=== PATIENT | female | born 1995 | race Caucasian/White ===

== ENCOUNTER 2021-06-02 02:36 | Inpatient (IN) | payer BC, OTHER ==
[2021-06-02 06:09] VITALS: BMI 25.7
[2021-06-02 06:55] LABS: BASO % 0.4 % (0-2.0); EOS % 0.5 % (0-4.5); HEMATOCRIT 33.3 % (32.4-45.2); HEMOGLOBIN 11.3 GM/dL (10.7-15.3); LYMPH % 25.2 % (8-40); MCH 27.5 pg (25.7-33.7); MEAN CELL VOLUME 80.9 fl (80-96); MEAN PLT VOLUME 7.5 fl (7.5-11.1); MONO % 5.7 % (3.8-10.2); NEUT % 68.2 % (42.8-82.8); PLATELET COUNT 327 10^3/uL (134-434); RBC 4.11 M/mm3 (3.60-5.2); RDW 15.1 % (11.6-15.6); WHITE BLOOD COUNT 8.8 K/mm3 (4.0-10.0)
[2021-06-02 07:00] LABS: BLOOD UREA NITROGEN 16.8 mg/dL (7-18); CALCIUM 8.5 mg/dL (8.5-10.1)
[2021-06-02 07:04] LABS: CREATININE 0.6 mg/dL (0.55-1.3)
[2021-06-02 07:10] LABS: INR 1.01 (0.83-1.09); PROTHROMBIN TIME (PATIENT) 12.2 SEC (9.7-13.0)
[2021-06-02 07:13] LABS: ACTIVATED PTT 26.8 SECONDS (25.2-36.5)
[2021-06-02] MEDS ORDERED: OXYTOCIN 20 UNITS in 0.9% NS 20 UNIT/1,000 ML INFUS.BAG IV ONE ×2 (17:43→19:12)
[2021-06-02] MEDS ORDERED: LIDOCAINE HCL 1% PRESERVATIVE FREE - 30ML VIAL ONE (17:43)
[2021-06-02] MEDS ORDERED: ELECTROLYTE-148 SOLN 1,000 ML IV SCH (18:45)
[2021-06-02] MEDS ORDERED: OXYTOCIN 30 UNITS in 0.9% NS 30 UNIT/500 ML INFUS.BAG IVPB ONE (19:12)
[2021-06-02] MEDS ORDERED: OXYTOCIN 30 UNITS in 0.9% NS 30 UNIT/500 ML INFUS.BAG IVPB SCH (19:15)
[2021-06-02] MEDS ORDERED: IBUPROFEN 600 MG TABLET (FP) PO ONE (21:18)
[2021-06-02] MEDS ORDERED: BENZOCAINE 20% 57 GM BOTTLE TP PRN (21:24)
[2021-06-02] MEDS ORDERED: METHYLERGONOVINE MALEATE 0.2 MG/1 ML AMP IM PRN (21:24)
[2021-06-02] MEDS ORDERED: WITCH HAZEL 50% (TUCKS) 40 PAD/JAR PAD TP PRN (21:24)
[2021-06-02] MEDS ORDERED: BENZOCAINE 28 GM HEMORRHOIDAL OINTMENT TP PRN (21:24)
[2021-06-02] MEDS ORDERED: IBUPROFEN 600 MG TABLET (FP) PO PRN (21:24)
[2021-06-02] MEDS ORDERED: BISACODYL 10 MG SUPP.RECT RC PRN (21:24)
[2021-06-02] MEDS ORDERED: OXYTOCIN 20 UNITS in 0.9% NS 20 UNIT/1,000 ML INFUS.BAG IV SCH (21:30)
[2021-06-03] MEDS: ACETAMINOPHEN 325 MG TABLET (FP) PO PRN ×3 (09:32→20:35)
[2021-06-03 11:27] LABS: BASO % 0.3 % (0-2.0); EOS % 0.2 % (0-4.5); HEMATOCRIT 29.3 % (32.4-45.2); HEMOGLOBIN 9.9 GM/dL (10.7-15.3); LYMPH % 14.4 % (8-40); MCH 27.7 pg (25.7-33.7); MCHC 33.7 g/dl (32.0-36.0); MEAN CELL VOLUME 82.1 fl (80-96); MEAN PLT VOLUME 7.8 fl (7.5-11.1); NEUT % 81.1 % (42.8-82.8); PLATELET COUNT 270 10^3/uL (134-434); RBC 3.57 M/mm3 (3.60-5.2); WHITE BLOOD COUNT 13.9 K/mm3 (4.0-10.0)
[2021-06-03] MEDS ORDERED: SENNOSIDES/DOCUSATE COMBO (SENNA PLUS) TABLET (UD) PO PRN (22:00)
[2021-06-04 09:39] LABS: POC NITRAZINE NEG
[2021-06-04 12:40] VITALS: BP 110/78; PULSE 71; TEMP 98.1
== END 2021-06-04 12:40 | disposition home or self-care (01) | DRG 807 ==
LOC: JDEL 02:36 → JLDR 04:45 → J3W 22:54
PROVIDERS: ADMIT Specialist; ATTEND Specialist
PROC: 10E0XZZ Delivery of Products of Conception, External Approach (ICD-10-PCS; principal; 2021-06-02)
DX: O70.0 First degree perineal laceration during delivery (principal); Z37.0 Single live birth; Z3A.39 39 weeks gestation of pregnancy
CPT/HCPCS: 36415; 59409; 80048; 83986-QW; 85025; 85610; 85730; 86780; 86850; 86900; 86901; C9803; U0003; U0005

== ENCOUNTER 2022-06-09 16:40 | Emergency (ER) | payer OTHER ==
[2022-06-09 17:19] VITALS: BP 102/70; PULSE 96; RESP 20; TEMP 98.5; BMI 30.9
[2022-06-09] MEDS: ALBUTEROL SO4 2.5/IPRATROPIUM 0.5 INH SOL 3 ML VIAL.NEB. NEB SCH ×3 (17:45→18:36)
[2022-06-09] MEDS ORDERED: ALBUTEROL SO4 2.5/IPRATROPIUM 0.5 INH SOL 3 ML VIAL.NEB. NEB ONE (18:22)
== END 2022-06-09 19:54 | disposition home or self-care (01) ==
LOC: JER 16:40
PROC: 3E0F7GC Introduction of Other Therapeutic Substance into Respiratory Tract, Via Natural or Artificial Opening (ICD-10-PCS; principal; 2022-06-09)
DX: R51.9 Headache, unspecified (principal); R05.1 Acute cough; R09.81 Nasal congestion
CPT/HCPCS: 0241U-QW; 99283-25

== ENCOUNTER 2022-07-30 03:00 | Inpatient (IN) | payer OTHER ==
[2022-07-30 18:39] VITALS: BMI 31.8
[2022-07-30 18:59] LABS: BASO % 0.3 % (0-2.0); EOS % 0.1 % (0-4.5); HEMATOCRIT 32.6 % (32.4-45.2); LYMPH % 12.6 % (8-40); MCH 27.5 pg (25.7-33.7); MCHC 33.7 g/dl (32.0-36.0); MEAN CELL VOLUME 81.7 fl (80-96); MEAN PLT VOLUME 7.6 fl (7.5-11.1); MONO % 3.7 % (3.8-10.2); NEUT % 83.3 % (42.8-82.8); PLATELET COUNT 319 10^3/uL (134-434); RBC 3.99 M/mm3 (3.60-5.2); RDW 14.8 % (11.6-15.6); WHITE BLOOD COUNT 10.3 K/mm3 (4.0-10.0)
[2022-07-30 19:07] LABS: INR 1.03 (0.83-1.09); PROTHROMBIN TIME (PATIENT) 11.8 SEC (9.7-13.0)
[2022-07-30 19:09] LABS: ACTIVATED PTT 27.2 SECONDS (25.2-36.5)
[2022-07-30] MEDS ORDERED: BENZOCAINE 28 GM HEMORRHOIDAL OINTMENT TP PRN (19:14)
[2022-07-30] MEDS ORDERED: BISACODYL 10 MG SUPP.RECT RC PRN (19:14)
[2022-07-30] MEDS ORDERED: WITCH HAZEL 50% (TUCKS) 40 PAD/JAR PAD TP PRN (19:14)
[2022-07-30] MEDS ORDERED: BENZOCAINE 20% 57 GM BOTTLE TP PRN (19:14)
[2022-07-30] MEDS ORDERED: METHYLERGONOVINE MALEATE 0.2 MG/1 ML AMP IM PRN (19:14)
[2022-07-30] MEDS ORDERED: OXYTOCIN 20 UNITS in 0.9% NS 20 UNIT/1,000 ML INFUS.BAG IV SCH (19:15)
[2022-07-30 19:18] LABS: CALCIUM 8.6 mg/dL (8.5-10.1)
[2022-07-30 19:19] LABS: BLOOD UREA NITROGEN 12.5 mg/dL (7-18)
[2022-07-30 19:21] LABS: CREATININE 0.5 mg/dL (0.55-1.3)
[2022-07-30] MEDS ORDERED: IBUPROFEN 600 MG TABLET (FP) PO ONE (20:50)
[2022-07-30] MEDS: IBUPROFEN 600 MG TABLET (FP) PO PRN (20:52)
[2022-07-31 09:56] LABS: BASO % 0.3 % (0-2.0); EOS % 0.3 % (0-4.5); HEMATOCRIT 31.9 % (32.4-45.2); HEMOGLOBIN 10.6 GM/dL (10.7-15.3); MCH 27.5 pg (25.7-33.7); MCHC 33.2 g/dl (32.0-36.0); MEAN CELL VOLUME 82.7 fl (80-96); MEAN PLT VOLUME 7.6 fl (7.5-11.1); MONO % 4.9 % (3.8-10.2); NEUT % 80.5 % (42.8-82.8); PLATELET COUNT 278 10^3/uL (134-434); RBC 3.86 M/mm3 (3.60-5.2); RDW 14.9 % (11.6-15.6); WHITE BLOOD COUNT 11.2 K/mm3 (4.0-10.0)
[2022-07-31] MEDS: IBUPROFEN 600 MG TABLET (FP) PO PRN (20:28)
[2022-07-31] MEDS ORDERED: SENNOSIDES/DOCUSATE COMBO (SENNA PLUS) TABLET (UD) PO PRN (22:00)
[2022-08-01] MEDS: IBUPROFEN 600 MG TABLET (FP) PO PRN (09:36)
[2022-08-01 11:52] VITALS: BP 102/68; PULSE 70; RESP 18; TEMP 98.1
== END 2022-08-01 12:45 | disposition home or self-care (01) | DRG 807 ==
LOC: JDEL 03:00 → JLDR 18:05 → J3W 20:52
PROVIDERS: ADMIT Obstetrics & Gynecology; ATTEND Obstetrics & Gynecology
PROC: 10E0XZZ Delivery of Products of Conception, External Approach (ICD-10-PCS; principal; 2022-07-30)
DX: O80 Encounter for full-term uncomplicated delivery (principal); Z37.0 Single live birth; Z3A.36 36 weeks gestation of pregnancy
CPT/HCPCS: 36415; 59025; 59409; 80048; 85025; 85610; 85730; 86780; 86850; 86900; 86901; C9803-CS; U0003; U0005

== ENCOUNTER 2023-05-31 13:43 | Emergency (ER) | payer OTHER ==
[2023-05-31 13:47] VITALS: BP 121/97; PULSE 68; RESP 18; TEMP 98.9; BMI 29.2
== END 2023-05-31 15:11 | disposition left against medical advice (07) ==
LOC: JER 13:43
DX: R42 Dizziness and giddiness (principal)
CPT/HCPCS: 99281-25

== ENCOUNTER 2024-07-22 15:50 | Inpatient (IN) | payer OTHER ==
[2024-07-22] MEDS: ELECTROLYTE-148 SOLN 1,000 ML IV SCH (16:15)
[2024-07-22] MEDS: OXYTOCIN 20 UNITS in 0.9% NS 20 UNIT/1,000 ML INFUS.BAG IV SCH (17:05)
[2024-07-22] MEDS ORDERED: IBUPROFEN 600 MG TABLET (FP) PO ONE (17:21)
[2024-07-22] MEDS: IBUPROFEN 600 MG TABLET (FP) PO PRN (17:21)
[2024-07-22] MEDS ORDERED: BISACODYL 10 MG SUPP.RECT RC PRN (17:22)
[2024-07-22] MEDS ORDERED: WITCH HAZEL 50% (TUCKS) 40 PAD/JAR PAD TP PRN (17:22)
[2024-07-22] MEDS ORDERED: BENZOCAINE 28 GM HEMORRHOIDAL OINTMENT TP PRN (17:22)
[2024-07-22] MEDS ORDERED: METHYLERGONOVINE MALEATE 0.2 MG/1 ML AMP IM PRN (17:22)
[2024-07-22 17:55] VITALS: BMI 31.8
[2024-07-22 18:10] LABS: HEMATOCRIT 37.1 % (32.4-45.2); HEMOGLOBIN 12.1 GM/dL (10.7-15.3); MCH 26.6 pg (25.7-33.7); MCHC 32.7 g/dl (32.0-36.0); MEAN CELL VOLUME 81.4 fl (80-96); MEAN PLT VOLUME 7.7 fl (7.5-11.1); PLATELET COUNT 290 10^3/uL (134-434); RBC 4.55 M/mm3 (3.60-5.2); RDW 15.5 % (11.6-15.6); WHITE BLOOD COUNT 12.3 K/mm3 (4.0-10.0)
[2024-07-22 18:18] LABS: INR 1.02 (0.83-1.09); PROTHROMBIN TIME (PATIENT) 11.5 SEC (9.7-13.0)
[2024-07-22 18:29] LABS: POTASSIUM 3.9 mmol/L (3.5-5.1)
[2024-07-22 18:30] LABS: CALCIUM 8.7 mg/dL (8.5-10.1)
[2024-07-22 18:31] LABS: BLOOD UREA NITROGEN 9.6 mg/dL (7-18)
[2024-07-22 18:34] LABS: CREATININE 0.5 mg/dL (0.55-1.3)
[2024-07-22 19:27] LABS: ANISOCYTOSIS 0; HELMET CELLS 0; HOWELL-JOLLY BODIES 0; MACROCYTOSIS 0; OVALOCYTE 0; ROULEAU 0; SICKELED CELLS 0; TARGET CELLS 0; TEAR DROP CELLS 0; TOXIC GRANULATION 0
[2024-07-22] MEDS: ACETAMINOPHEN 325 MG TABLET (FP) PO PRN (22:51)
[2024-07-22] MEDS: BENZOCAINE 20% 57 GM BOTTLE TP PRN (22:52)
[2024-07-23 08:32] LABS: BASO % 0.4 % (0-2.0); EOS % 0.8 % (0-4.5); HEMATOCRIT 32.3 % (32.4-45.2); HEMOGLOBIN 10.7 GM/dL (10.7-15.3); LYMPH % 20.8 % (8-40); MCH 26.8 pg (25.7-33.7); MEAN CELL VOLUME 81.3 fl (80-96); MEAN PLT VOLUME 7.4 fl (7.5-11.1); MONO % 6.1 % (3.8-10.2); NEUT % 71.9 % (42.8-82.8); PLATELET COUNT 248 10^3/uL (134-434); RBC 3.98 M/mm3 (3.60-5.2); RDW 15.4 % (11.6-15.6); WHITE BLOOD COUNT 10.5 K/mm3 (4.0-10.0)
[2024-07-23] MEDS: PRENATAL VITAMINS W/ FOLIC ACID TABLET (FP) PO SCH (10:36)
[2024-07-23] MEDS ORDERED: SENNOSIDES/DOCUSATE COMBO (SENNA PLUS) TABLET (UD) PO PRN (22:00)
[2024-07-23 22:07] VITALS: RESP 17; TEMP 98.2
[2024-07-24 09:01] VITALS: BP 104/64; PULSE 88
== END 2024-07-24 11:45 | disposition home or self-care (01) | DRG 807 ==
LOC: JLDR 15:50 → J3W 21:58
PROVIDERS: ADMIT Obstetrics & Gynecology; ATTEND Obstetrics & Gynecology
PROC: 10E0XZZ Delivery of Products of Conception, External Approach (ICD-10-PCS; principal; 2024-07-22)
DX: O80 Encounter for full-term uncomplicated delivery (principal); Z3A.39 39 weeks gestation of pregnancy; Z37.0 Single live birth
CPT/HCPCS: 36415; 59409; 80048; 85025; 85610; 85730; 86780; 86850; 86900; 86901